=== PATIENT | male | born 1980 | race Caucasian/White ===

== ENCOUNTER → 2024-03-09 | Outpatient (CLI) | payer OTHER | LOC: MHCPAIN 08:12 | DX: M47.816 Spondylosis without myelopathy or radiculopathy, lumbar region (principal); M48.061 Spinal stenosis, lumbar region without neurogenic claudication; M41.86 Other forms of scoliosis, lumbar region | CPT/HCPCS: G0463 ==

== ENCOUNTER → 2024-03-14 | Outpatient (CLI) | payer OTHER ==
[~2024-03-14] MED LIST: Iohexol 300 - 10 ML VIAL ONE; Lidocaine PF 2% (20 MG/ML) 2 ML VIAL ONE
== END ==
LOC: MHCPAIN 09:19
DX: M54.16 Radiculopathy, lumbar region (principal)
CPT/HCPCS: J1100; Q9967

== ENCOUNTER → 2024-04-04 | Outpatient (CLI) | payer OTHER | LOC: MHCPAIN 08:20 | DX: M51.36 Other intervertebral disc degeneration, lumbar region (principal); M47.896 Other spondylosis, lumbar region; M43.16 Spondylolisthesis, lumbar region; M48.061 Spinal stenosis, lumbar region without neurogenic claudication | CPT/HCPCS: G0463 ==